=== PATIENT | male | born 1960 | race African-American/Black ===

== ENCOUNTER 2021-09-16 10:57 | Outpatient (REF) | payer MEDICAID, OTHER, SELFPAY ==
[2021-09-16 13:24] LABS: Binax Internal Control QC Valid; Binax Now Covid-19 Ag Negative (Negative)
== END 2021-09-16 10:58 | disposition home or self-care (01) ==
LOC: HO.LAB 10:57
PROVIDERS: Visit Provider Internal Medicine
DX: Z20.822 Contact with and (suspected) exposure to COVID-19 (principal)
CPT/HCPCS: 36415; C9803

== ENCOUNTER 2024-01-24 18:09 | Outpatient (REF) | payer MEDICAID, OTHER, SELFPAY | END 2024-01-24 18:10 | disposition home or self-care (01) | LOC: HO.HHCLNP 18:09 | PROVIDERS: Visit Provider Internal Medicine Geriatric Medicine | DX: N40.1 Benign prostatic hyperplasia with lower urinary tract symptoms (principal); R39.12 Poor urinary stream; R97.20 Elevated prostate specific antigen [PSA] | CPT/HCPCS: 81001 ==

== ENCOUNTER 2024-03-26 17:41 | Outpatient (REF) | payer MEDICAID, OTHER, SELFPAY ==
[2024-03-27 05:49] LABS: CT PCR NOT DETECTED (Not Detect.); NG PCR NOT DETECTED (Not Detect.)
== END 2024-03-26 17:42 | disposition home or self-care (01) ==
LOC: HO.HHCLNP 17:41
PROVIDERS: Visit Provider Nurse Practitioner Primary Care
DX: Z11.3 Encounter for screening for infections with a predominantly sexual mode of transmission (principal)
CPT/HCPCS: 87491; 87591

== ENCOUNTER 2024-12-08 13:33 | Outpatient (REF) | payer MEDICAID, OTHER, SELFPAY | END 2024-12-08 13:34 | disposition home or self-care (01) | LOC: HO.HHCLNP 13:33 | PROVIDERS: Visit Provider Family Medicine | DX: B00.2 Herpesviral gingivostomatitis and pharyngotonsillitis (principal) | CPT/HCPCS: 36415; 87255 ==

== ENCOUNTER 2025-01-26 13:29 | Outpatient (REF) | payer MEDICAID, OTHER, SELFPAY | END 2025-01-26 13:30 | disposition home or self-care (01) | LOC: HO.HHCLNP 13:29 | PROVIDERS: Visit Provider Registered Nurse | DX: B00.9 Herpesviral infection, unspecified (principal) | CPT/HCPCS: 36415; 87255 ==

== ENCOUNTER 2025-03-04 09:56 | Outpatient (REF) | payer MEDICAID, OTHER, SELFPAY ==
[2025-03-04 11:13] LABS: Appearance Urine Clear; Color Urine Yellow; Glucose Urine UA Negative (Negative); Leukocyte Esterase Urine Trace (Negative); Nitrite Urine Negative (Negative); PH 6.5 (5.0-9.0); Specific Gravity - Urine 1.025 (1.005-1.025); UMIC TRIGGER UACC YES; Urine Blood Negative (Negative); Urine Ketones Negative (Negative); Urine Protein Negative (Neg-Trace)
[2025-03-04 11:19] LABS: Bacteria Urine None Seen (None Seen); Hyaline Casts Urine 0-2 /LPF (0-2); RBC Urine 0-2 /HPF (0-2); Squamous Epithelial Cell Urine 0-2 /HPF (0-2); WBC Urine 0-5 /HPF (0-5)
[2025-03-04 11:46] LABS: Alanine Aminotransferase 29 U/L (0-40); Albumin Level 4.3 g/dL (3.5-5.0); Alkaline Phosphatase 77 U/L (39-117); Anion Gap 10 (12-20); Aspartate Amino Transferase 34 U/L (5-37); Bilirubin Total 1.4 mg/dL (0.0-1.0); Blood Urea Nitrogen 21 mg/dL (9-16); Carbon Dioxide 26 mmol/L (22-29); Chloride 107 mmol/L (96-108); Estimated Glomerular Filt Rate > 60; Glucose Random 99 mg/dL (60-115); Potassium 3.7 mmol/L (3.3-5.1); Sodium 139 mmol/L (135-145)
[2025-03-04 12:00] LABS: HIV AB/AG Nonreactive (Nonreactive); HIV Num 1 0.05 S/CO (0.00-0.99); ~HepC Num1 0.11 S/CO (0.00-0.79); ~Hepatitis C Antibody Nonreactive (Nonreactive)
[2025-03-04 12:03] LABS: HBS Num1 0.57 mIU/mL (0-7.99); HBc Num1 0.05 S/CO (0.00-0.79); HBsAGNum1 0.53 S/CO (0.00-0.99); HIV AB/AG Nonreactive (Nonreactive); HIV Num 1 0.04 S/CO (0.00-0.99); Hepatitis A Antibody IgM 0.14 Index (0-0.79); Hepatitis B Core Antibody Nonreactive (Nonreactive); Hepatitis B Surface Antigen Negative (Negative); ~HepC Num1 0.11 S/CO (0.00-0.79); ~Hepatitis A Antibody IgM Nonreactive (Nonreactive); ~Hepatitis B Surface Antibody NONREACTIVE (Nonreactive); ~Hepatitis C Antibody Nonreactive (Nonreactive)
[2025-03-04 12:04] LABS: Syphilis Screen Nonreactive (Nonreactive)
[2025-03-04 12:11] LABS: PSA,Total (Free>4and<10) 9.41 ng/mL (0.00-4.00)
[2025-03-04 13:03] LABS: CT PCR NOT DETECTED (Not Detect.); NG PCR NOT DETECTED (Not Detect.)
[2025-03-05 10:43] LABS: RPR Rapid Plasma Reagin NON-REACTIVE (NON-REACTIVE)
[2025-03-05 14:33] LABS: Free Prostate Spec Ag 1.7 ng/mL; Percent Free Prostate Spec Ag 22 % (calc) (>25); Prostate Specific Ag Total 7.7 ng/mL (< OR = 4.0)
== END 2025-03-04 09:57 | disposition home or self-care (01) ==
LOC: HO.HHCL 09:56
PROVIDERS: Family Medicine; General Practice; Nurse Practitioner Primary Care; PCP Internal Medicine; Visit Provider Internal Medicine
DX: N50.89 Other specified disorders of the male genital organs (principal); N41.0 Acute prostatitis; Z11.3 Encounter for screening for infections with a predominantly sexual mode of transmission; Z87.438 Personal history of other diseases of male genital organs
CPT/HCPCS: 36415; 80053; 81001; 84153; 84154; 86592; 86704; 86706; 86709; 86780; 86803; 87340; 87389; 87491; 87591

== ENCOUNTER 2025-08-01 09:12 | Outpatient (REF) | payer MEDICAID, OTHER, SELFPAY ==
--- OUTSIDE RECORDS SUMMARY | 2025-08-01 09:00 | XMS_ITS | Encounter Summary ---
Author Organization [employer] Address [address] [facility] [address] [place] [address] Care Team Providers Care B2B Sales Consultant Name Role Phone Constance Michael MD Unavailable [phone] Constance Michael MD Primary Care Provide r Encounter Details Date Type Department Care Team ([facility] st Contact Info) Description 08/01/2025 9:00 AM EST Office Visit [facility] [address] [place] [address] [phone] Nitesh Rader MD [address] [place] [address] Penile rash (Primary Dx) Social History Tobacco [...] daily for 7 days. Patient presents to [facility] due to itchy/painful redness on his penis [...] Penile rash Expected: 08/01/2025 (Approximate), Expires: 08/01/2026 Hepatitis C Antibody with Reflex to HCV, RNA, Quantitative, Real-Time PCR Lab Routine Penile rash Expected: 08/01/2025 (Approximate), Expires: 08/01/2026 HIV-1/2 Antigen and Antibodies, Fourth Generation, with Reflexes Lab Routine Penile rash Expected: 08/01/2025 (Approximate), Expires: 08/01/2026 Syphilis Screen Lab Routine Penile rash Expected: 08/01/2025 (Approximate), Expires: 08/01/2026 documented as of this encounter Visit Diagnoses Diagnosis Penile rash- Primary documented in this encounter Additional Health Concerns Assessment Noted Time PHQ-9 Depression Total Score: 0 07/04/20 11:58 AM EDT documented as of this encounter Care Teams B2B Sales Consultant Relationship Specialty Start Date End Date Constance Michael MD [address] [place] [address] PCP - General Internal Medicine 03/26/24 Constance Michael MD [address] [place] [address] Family Medicine 07/09/22 documented as of this encounter
--- OUTSIDE RECORDS SUMMARY | 2025-08-01 11:47 | XMS_ITS | Encounter Summary ---
Author Organization [employer] Address [address] [facility] [address] [place] [address] Care Team Providers Care Diamond Sawer Name Role Phone Constance Michael MD Primary Care Provide r Kyara Bowling DMD Primary Care Provide r Constance Michael MD Unavailable [phone] Constance Michael MD Primary Care Provide r Encounter Details Date Type Department Care Team (Latest Contact Info) Description 08/13/2021 Abstract [facility] CONVERSIONS Dental, Provider, DDS Social History Tobacco Use Types Packs/Day Years Used Date Smoking Tobacco: Never Assessed Sex and Gender Information Value Date Recorded Sex Assigned at Male 07/12/2022 10:35 AM EDT Legal Sex Male 10:35 AM EDT Gender Identity Male 07/12/2022 10:35 AM EDT Sexual Orientation Straight 07/12/2022 10 :35 AM EDT documented as of this encounter Plan of Treatment Not on file documented as of this encounter Visit Diagnoses Not on filedocumented in this encounter Care Teams Diamond Sawer Relationship Specialty Start Date End Date Constance Michael MD [address] [place] [address] PCP - General Family Medicine 12/01/18 07/08/22 Kyara Bowling DMD [address] [place] [phone] PCP - General Dentist 07/09/22 03/25/24 Constance Michael MD [address] [place] [address] PCP - General Internal Medicine 03/26/24 Constance Michael MD [address] [place] [address] Family Medicine 07/09/22 documented as of this encounter
--- OUTSIDE RECORDS SUMMARY | 2025-08-01 11:47 | XMS_ITS | Encounter Summary ---
Author Organization [facility] Address [address] [facility] [address] [place] [address] Care Team Providers Care Business Editor Name Role Phone Kyara Bowling DMD Primary Care Provide r Constance Michael MD Unavailable [phone] Constance Michael MD Primary Care Provide r Encounter Details Date Type Department Care Team (Late st Contact Info) Description 10/15/2022 Abstract [facility] [address] [place], [place] [phone] Jay Kamara DDS [address] [place], [place] [phone] Social History Tobacco Use Types Packs/Day Years Used Date Smoking Tobacco: Never Passive Smoke Exposure: Never Smokeless Tobacco: Never Alcohol Use Standard Drinks/Week Comments Never 0 (1 standard drink = 0.6 oz pur e alcohol) Sex and Gender Information Value Date Recorded Sex Assigned at Male 07/12/2022 10:35 AM EDT Legal Sex Male 10:35 AM EDT Gender Identity Male 07/12/2022 10:35 AM EDT Sexual Orientation Straight 07/12/2022 10 :35 AM EDT COVID-19 Exposure Response Date Recorded In the last 10 days, have yo u been in contact with someone who was confirmed or suspected to have Coronavirus/COVID-19? No / Unsure 10/12/2022 3:23 PM EST documented as of this encounter Plan of Treatment Not on file documented as of this encounter Visit Diagnoses Not on filedocumented in this encounter Care Teams Business Editor Relationship Specialty Start Date End Date Kyara Bowling DMD [address] [place] [phone] PCP - General Dentist 07/09/22 03/25/24 Constance Michael MD [address] [place] [address] PCP - General Internal Medicine 03/26/24 Constance Michael MD [address] [place] [address] Family Medicine 07/09/22 documented as of this encounter
--- OUTSIDE RECORDS SUMMARY | 2025-08-01 11:48 | XMS_ITS | Clinical Summary ---
Author Organization [employer] Address [address] [facility] 7[address] [place] [address] Care Team Providers Care Technical Planner Name Role Phone Constance Michael MD Unavailable [phone] Constance Michael MD Primary Care Provide r Allergies Active Allergy Reactions Criticality Noted Date Comments Citrullus Vulgaris Hives 10/29/2022 Solani Melongenae 08/04/2024 Medications Ketotifen Fumarate 0.035 % solution Administer 1 drop into affected eye(s) if needed in the morning and at bedtime (eye redness, itching). 10 mL 01/02/20 25 Active tamsulosin (Flomax) 0.4 MG 24 hr capsule Take 1 capsule (0.4 mg) by mouth Once per day. 30 capsule 1 01/02/20 25 026 Active famotidine (Pepcid) 20 MG tabletIndications: Gastroesophageal reflux disease, unspecified whether esophagitis present Take 1 tablet twice daily as needed for acid reflux 40 tablet 05/01/20 25 Active ibuprofen 800 MG tablet Take 1 tablet (800 mg) by mouth 3 times daily. 90 tablet 2 06/03/20 25 025 Active ketoconazole (NIZOral) 2 % cream APPLY CREAM TOPICALLY TO AFFECTED AREA TWICE DAILY FOR 2-4 WEEKS UNTIL RASH RESOLVES AND THEN FOR ANOTHER 1-2 WEEKS 05/18/20 25 Active prednisoLONE acetate (Pred-Forte) 1 % ophthalmic suspension INSTILL 1 DROP INTO EACH EYE TWICE DAILY FOR 7 DAYS,SHAKE WELL BEFORE USING 07/02/20 25 Active hydrocortisone 2.5 % cream APPLY CREAM TO AFFECTED AREA ON NOSE TWICE DAILY NEEDED FOR RASH UNTIL CLEAR THEN STOP 05/18/20 Active clotrimazole (Lotrimin) 1 % creamIndications:P enile rash Apply topically 2 times daily for 7 days. 30 g 9:50 AM EST 08/01/20 Active fluticasone (Flonase) 50 MCG/ACT nasal spray Administer 1 spray into each nostril Once per day. 16 g 05/11/20 24 Discontinu ed(Therapy completed) acetaminophen (Tylenol) 500 MG tablet Take 1 tablet (500 mg) by mouth every 6 (six) hours if needed for mild pain for up to 20 doses. 20 tablet 07/30/20 Discontinu ed(Therapy completed) ibuprofen 600 MG tablet Take 1 tablet (600 mg) by mouth every 6 (six) hours if needed for mild pain for up to 20 doses. 20 tablet 07/30/20 Discontinu ed(Therapy completed) hydrocortisone 1 % creamIndications:R sloan Apply 2-3 times/d as needed for itching 28 g 02/26/20 Discontinu ed(Therapy completed) prednisoLONE acetate (Pred-Forte) 1 % ophthalmic suspensionIndicati ons:Viral conjunctivitis Administer 1 drop into both eyes 2 times daily for 7 days. Shake before using. 5 mL 07/02/20 25 cephalexin (Keflex) 500 MG capsuleIndications :Cellulitis of groin Take 1 capsule (500 mg) by mouth 3 times daily for 7 days. 21 capsule 07/11/20 Active Problems Problem Noted Date Diagnosed Date Abfraction 04/03/2025 Genital lesion, male 03/04/2025 Assessment & Plan (03/04/2025 11:58 AM EDT): Unclear if it is an LGV, definitely it is not an ulcerated lesions. I will Rx doxycycline and other STI labs Advised to use condoms at all times and follow-up with PCP We discussed about PrEP but he was not interested in starting medication at this time. Skin rash 03/04/2025 Assessment & Plan (03/04/2025 11:59 AM EDT): On nose bridge, he has have HSV in the past but not typical lesions today. Rx Lotrisone cream twice daily and use zinc oxide paste on top of area to speed up healing (see picture in the chart) Since it is a recurrent lesion in the face and on that area, I will refer to dermatology for follow-up and biopsy if needed. 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 Reassurance and education to patient re using Valtrex as above within the firs 24-48h of onset of sxs (numbness or the area, redness, pain) for better results. Refills are provided today. Contact precautions, can use Vaseline ointment with a cotton swab on affected area to speed up healing. FU with PCP. 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 Encounters Date Type Department Care Team Description 08/01/2025 9:00 AM EST Office Visit [facility] [address] [place] [address] Nitesh Rader MD Penile rash (Primary Dx) 08/01/2025 Travel 07/11/2025 10:40 AM EDT Office Visit [facility] [address] [place] [address] Nitesh Rader MD Cellulitis of groin (Primary Dx) 07/11/2025 Travel 07/02/2025 2:30 PM EDT Office Visit [facility] [address] [place] [address] Luca, Lisa, OD Viral conjunctivitis (Primary Dx) 07/02/2025 Travel 06/03/2025 11:20 AM EDT Office Visit [facility] [address] [place] [address] Dulce Enamorado MD Abscess (Primary Dx) 06/03/2025 Travel 05/31/2025 Travel 05/01/2025 3:20 PM EDT [facility] [address] [address] Lesley Solis ANP Gastroesophageal reflux disease, unspecified whether esophagitis present (Primary Dx); Sore throat 05/01/2025 Travel from Last 3 Months Immunizations Immunization Administration Dates Next Due Influenza injectable quadrivalent preservative f ree 12/01/2018 Tdap 12/01/2018 Social History Tobacco Use Types Packs/Day Years Used Date Smoking Tobacco: Never Passive Smoke Exposure: Never Smokeless Tobacco: Never Tobacco Cessation:Counseling Given: Not Answered Alcohol Use Standard Drinks/Week Comments Never 0 [...] Orientation Straight 07/12/2022 10 :35 AM EDT Last Filed Vital Signs Vital Sign Reading [...] Mass Index 26.76 08/01/2025 8:43 AM EST Plan of Treatment Health Maintenance Due Date Last Done Comments CT Colonography 1961 Colonoscopy 1961 Colorectal Cancer Screening 1961 FIT DNA/Cologuard 1961 FIT 1961 FOBT 1961 Lipid Panel 1961 Sigmoidoscopy 1961 Disability Screening 1961 Alcohol/Substance Use Screening 1973 Pneumococcal Vaccine: 50+ Years (1 of 1 - PCV) 2011 Zoster Vaccines (1 of 2) 2011 COVID-19 Vaccine (3 - season) 2025 11/03/2021, 10/13/2021 Influenza Vaccine (#1) 2025 12/01/2018 Depression Screening 07/04/2025 07/04/2024, 07/04/20 24 SDOH Screening 07/04/2025 07/04/2024 Dental X-Ray: Full Mouth 09/30/2025 023, 12/09/2021, 12/09/2021, Additional history exists Dental Oral Exam 10/05/2025 04/03/2025, , 09/10/2016, Additional history exists Dental Prophylaxis 10/05/2025 04/03/2025, 0 09/29/2022, 09/10/2016, Additional history exists Dental X-Ray: Bitewings 04/04/2026 04/03/20 25, 10/26/2023, 09/19/2023, Additional history exists Tobacco Screening 08/01/2026 08/01/2025 DTaP/Tdap/Td Vaccines (2 - Td or Tdap) 12/01/2028 12/01/2018 RSV Patients and Patients Aged 60 years or older (1 - 1-dose 75+ series) 02/22/2036 HIV Screening Completed 03/04/2025, 02/11, 06/03/2020, Additional history exists Hepatitis C Screening Completed 03/04/2025 , 03/04/2025, 06/03/2020 HIB Vaccines Aged Out No longer eligi ble based on patient's age to complete this topic HPV Vaccines Aged Out No longer eligi ble based on patient's age to complete this topic Hepatitis A Vaccines Aged Out No long er eligible based on patient's age to complete this topic Hepatitis B Vaccines Aged Out No long er eligible based on patient's age to complete this topic IPV Vaccines Aged Out No longer eligi ble based on patient's age to complete this topic Meningococcal B Vaccine Aged Out No l onger eligible based on patient's age to complete this topic Meningococcal Vaccine Aged Out No emeli vince eligible based on patient's age to complete this topic RSV under 20 months Aged Out No longe r eligible based on patient's age to complete this topic Rotavirus Vaccines Aged Out No longer eligible based on patient's age to complete this topic Procedures Procedure Name Priority Date/Time Associated Diagnosis Comments AMB REFERRAL TO UROLOGY Urgent 07/17/2025 Elevated PSA, less than 10 ng/ml AMB REFERRAL TO DERMATOLOGY Routine 05/17/2025 Skin rash POCT COVID-19 AG ALICEA ID NOW Routine 05/01/2025 3:04 PM EDT Sore throat POC ALICEA ID NOW STREP A Routine 05/01/2025 2:51 PM EDT Sore throat PROPHYLAXIS - ADULT Routine 04/03/2025 3 :00 PM EDT BITEWINGS - 4 RADIOGRAPHIC IMAGES Routine 04/03/2025 3:00 PM EDT PERIODIC ORAL EVALUATION - ESTABLISHED PATIENT Routine 04/03/2025 3:00 PM EDT HEPATITIS PANEL, GENERAL Routine 03/04/2025 10:09 AM EDT Genital lesion, male HIV 1/2 ANTIGEN/ANTIBODY, FOURTH GENERATION W/RFL Routine 03/04/2025 10:09 AM EDT Genital lesion, male INTRAORAL - COMPLETE SERIES OF RADIOGRAPHIC IMAGES Routine 09/29/2022 10:00 AM EST from Last 3 Months or Most Recently Relevant to Health Maintenance Results * Referral to Urology (07/17/2025) us Jd Gunter MD OUTPATIENT REFERRAL ORDERABLES F inal Result * Referral to Dermatology (05/17/2025) us Teresa Lopez MD OUTPATIENT REFERRAL ORDE LAVELL Final Result * POCT Rapid Covid-19 ALICEA ID NOW (05/01/2025 3:04 PM EDT) Coronavirus Antigen PCR Negative Negative, Indeterminate, None Detected, Invalid, Specimen unsatisfactory for evaluation, Weakly Positive, 2+ QC Media Lot # [id number] Lot# Expiration Date Swab 05/01/2025 3:04 PM EDT Lesley Solis ANP POINT OF CARE TEST ENTER/EDIT OR DERABLES Final Result * POCT Rapid Strep A ALICEA ID NOW (05/01/2025 2:51 PM EDT) [facility] Rapid Strep A Screen Negative Negative, None Detected QC Media Lot # [id number] Lot# Expiration Date Swab 05/01/2025 2:51 PM EDT Lesley Solis ANP POINT OF CARE TEST ENTER/EDIT OR DERABLES Final Result * Hepatitis Panel, General (03/04/2025 10:09 AM EDT) [facility] Hepatitis A IgM Nonreactive Nonreactive [facility] Comment:IgM antibodies to BURNS V not detected; does not exclude earlyacute or recovered HAV infection. ~Hepatitis B Surface Antibody NONREACTIVE Nonreactive [facility] Comment:Nonreactive: < 8.00 mIU/mL Hepatitis B Core Antibody Nonreactive Nonreactive [facility] Hepatitis C Antibody Nonreactive Nonreactive [facility] Comment:Antibodies to HCV no t detected; does not exclude early acuteHCV infection. Hepatitis B Surface Ag Negative Negative [facility] Blood 03/04/2025 10:0 9 AM EDT 03/04/2025 11:12 AM EDT Teresa Lopez MD LAB BLOOD ORDERABLES Fin al Result [facility] [address] [place] [address] [phone] * HIV-1/2 Antigen and Antibodies, Fourth Generation, with Reflexes (03/04/2025 10:09 AM EDT) HIV AB/AG Nonreactive Nonreactive [facility] Comment:HIV-1 p24 Ag and/or HIV-1/HIV-2 Ab not detected.A test result that is nonreactive does not exclude thepossibility of exposure to or infection with HIV-1 and/orHIV-2. Nonreactive results in this assay for individualswith prior exposure to HIV-1 and/or HIV-2 may be due toantigen and antibody levels that are below the limit ofdetection of this assay.[employer] HIV Ag/Ab Combo assay result andsupplemental assay results should be interpreted inconjunction with the patient's clinical presentation,history and other laboratory results. If the results areinconsistent with clinical evidence, additional testing issuggested to confirm the result. Blood Venous blood specimen / Unknown 03/04/2025 10:09 AM EDT 03/04/2025 11:12 AM EDT Teresa Lopez MD LAB BLOOD ORDERABLES Fin al Result [facility] [address] [place] [address] [phone] from Last 3 Months or Most Recently Relevant to Health Maintenance Insurance [employer] LIMITED HS FULL D[facility]AL-[facility] MEDICAID LIMITED ADULT DENTAL - HSN FULL (MEDICAID) Care Teams Technical Planner Relationship Specialty Start Date End Date Constance Michale MD [address] [place] [address] PCP - General Internal Medicine 03/26/24 Constance Michael MD [address] [place] [address] Family Medicine 07/09/22
--- OUTSIDE RECORDS SUMMARY | 2025-08-01 11:48 | XMS_ITS | Encounter Summary ---
Author Organization [employer] [facility] Address [address] [facility] [address] [place] [address] Care Team Providers Care Technical Sales Advisor Name Role Phone Kyara Bowling DMD Primary Care Provide r Constance Michael MD Unavailable [phone] Constance Michael MD Primary Care Provide r Encounter Details Date Type Department Care Team ([facility] st Contact Info) Description 11/11/2022 Abstract [facility] [address] [place], [place] [phone] Jay Kamara DDS [address] [place], [place] [phone] Social History Tobacco Use Types Packs/Day Years [...] suspected to have Coronavirus/COVID-19? No / Unsure 11/11/2022 10:11 AM EST documented as of this encounter Plan of Treatment Not on file documented as of this encounter Visit Diagnoses Not on filedocumented in this encounter Care Teams Technical Sales Advisor Relationship Specialty Start Date End Date Kyara Bowling DMD [address] [place] [phone] PCP - General Dentist 07/09/22 03/25/24 Constance Michael MD [address] [place] [address] PCP - General Internal Medicine 03/26/24 Constance Michael MD [address] [place] [address] Family Medicine 07/09/22 documented as of this encounter
--- OUTSIDE RECORDS SUMMARY | 2025-08-01 11:48 | XMS_ITS | Encounter Summary ---
Author Organization [employer] Address [address] [facility] [address] [place] [address] Care Team Providers Care Block Trimmer Name Role Phone Constance Michael MD Unavailable [phone] Constance Michael MD Primary Care Provide r Encounter Details Date Type Department Care Team (Latest Contact Info) Description 08/01/2025 Travel Social History Tobacco Use Types Packs/Day Years [...] Diagnoses Not on filedocumented in this encounter Additional Health Concerns Assessment Noted Time PHQ-9 Depression Total Score: 0 07/04/20 24 11:58 AM EDT documented as of this encounter Care Teams Block Trimmer Relationship Specialty Start Date End Date Constance Michael MD [address] [place] [address] PCP - General Internal Medicine 03/26/24 Constance Michael MD [address] [place] [address] Family Medicine 07/09/22 documented as of this encounter
--- OUTSIDE RECORDS SUMMARY | 2025-08-01 11:48 | XMS_ITS | Encounter Summary ---
Author Organization [facility] Address [address] [facility] [address] [place] [address] Care Team Providers Care Electronic Lab Technician Name Role Phone Kyara Bowling DMD Primary Care Provide r Constance Michael MD Unavailable [phone] Constance Michael MD Primary Care Provide r Encounter Details Date Type Department Care Team ([facility] st Contact Info) Description 11/12/2022 Abstract [facility] [address] [place], [place] [phone] Jay Kamara DDS [address] [place], [place] [phone] Social History Tobacco Use Types Packs/Day Years [...] on filedocumented in this encounter Care Teams Electronic Lab Technician Relationship Specialty Start Date End Date Kyara Bowling DMD [address] [place] [id number] PCP - General Dentist 07/09/22 03/25/24 Constance Michael MD [address] [place] [address] PCP - General Internal Medicine 03/26/24 Constance Michael MD [address] [place] [address] Family Medicine 07/09/22 documented as of this encounter
--- OUTSIDE RECORDS SUMMARY | 2025-08-01 11:48 | XMS_ITS | Clinical Summary ---
Author Organization [facility] Address [address] [place] [address] Care Team Providers Care Engine Oiler Name Role Phone Constance Michael MD Primary Care Provider Allergies Active Allergy Reactions Criticality Noted Date Comments Watermelon Hives 10/29/2022 Medications famotidine (PEPCID) 20 mg tablet Take 40 mg by mouth daily. Active loratadine (CLARITIN) 10 mg tablet Take 10 mg by mouth as needed. Active hydrocortisone 2.5% cream Apply topically to the affected area 2 times a day as needed (Rash). Apply to nose daily as needed for rash until clear. Then stop 30 g 05/18/20 25 Active tamsulosin (FLOMAX) 0.4 mg capsule Take 1 capsule (0.4 mg total) by mouth at bed time. 90 capsule 3 07/17/20 25 026 Active sulfamethoxazo le-trimethopri m (BACTRIM DS) 800-160 mg tablet Take 1 tablet by mouth twice daily the day before, day of, and day after prostate biopsy. 6 tablet 07/17/20 25 Active tamsulosin (FLOMAX) 0.4 mg capsule Take 1 capsule (0.4 mg total) by mouth daily. 30 capsule 5 06/17/20 20 025 Discontinued ibuprofen (MOTRIN) 600 mg tablet Take 1 tablet (600 mg total) by mouth 3 times a day for 5 days. 15 tablet 07/17/20 25 025 Active Problems Problem Noted Date Diagnosed Date Adverse Food Reaction (Not Anaphylactic) 012 Allergic Rhinitis 08/15/2012 Encounters Date Type Department Care Team Description 07/18/2025 Results Follow-Up [facility] [address] [place] [address] Internist Medical Doctor Md: Joanie Gleason PA 07/17/2025 4:00 PM EST Office Visit [facility] [address] [place] [address] Internist Medical Doctor Md: Joanie Gleason PA Elevated PSA (Primary Dx); Dysuria; Chronic prostatitis 05/17/2025 2:15 PM EDT Office Visit [facility] [address] [place] [phone] Internist Medical Doctor Md: Brittney Nunn MD Inclusion cyst (Primary Dx); Tinea corporis 05/17/2025 Telephone [facility] [address] [place] [phone] Internist Medical Doctor Md: Brittney Nunn MD 05/17/2025 Telephone [facility] [address] [place] [phone] Internist Medical Doctor Md: Brittney Nunn MD from Last 3 Months Social History Tobacco Use Types Packs/Day Years Used Date Smoking Tobacco: Never Smokeless Tobacco: Never Comments:: Sex and Gender Information Value Date Recorded Sex Assigned at Male 04/05/2025 11:34 AM EDT Legal Sex Male 5:56 AM EDT Gender Identity Not on file Sexual Orientation Not on file Last Filed Vital Signs Vital Sign Reading Time Taken Comments Blood Pressure 115/68 07/17/2025 3:21 PM EST Pulse 75 07/17/2025 3:21 PM EST Temperature 36.7 C (98 F) 08/18/2012 9:34 AM EST Respiratory Rate - - Oxygen Saturation - - Inhaled Oxygen Concentration - - Weight 58.5 kg (129 lb) 08/18/2012 9:34 AM EST Height 160 cm (5' 3 ) 08/18/2012 9:34 AM EST Body Mass Index 22.85 08/18/2012 9:34 AM EST Plan of Treatment Upcoming Encounters Date Type Department Care Team (Late st Contact Info) Description 09/02/2025 6:45 PM EST Appointment [facility] [address] [place] [address] 10/17/2025 11:00 AM EST Office Visit [facility] [address] [facility] [place] [address] Internist Medical Doctor Md: Danyelle Lindsay, Grupo Whiteside MD [address] [place] [phone] Health Maintenance Due Date Last Done Comments Cologuard 1961 Colon Cancer Screening 1961 Colonoscopy 1961 FOBT / Fit Test 1961 Sigmoidoscopy 1961 Pneumococcal Vaccine: 50+ Years (1 of 1 - PCV) 2011 Zoster Vaccines (1 of 2) 2011 Alcohol/Substance Use Screening 09/12/2024 Depression Screening and Follow-Up 09/12/2024 Social Drivers of Health Annual Screening 09/12/2024 Influenza Vaccine (#1) 2025 12/01/2018 COVID-19 Vaccine ( season) 2025 11/03/2021, 10/13/2021 DTaP,Tdap,and Td Vaccines (2 - Td or Tdap) 12/01/2028 12/01/2018 RSV Vaccine (60+ years old and patients) (1 - 1-dose 75+ series) 02/22/2036 HIV Screening Completed 03/04/2025, 02/11, 03/04/2025, Additional history exists Hepatitis C Screening Completed 03/04/2025 Hepatitis B Vaccines Aged Out No long er eligible based on patient's age to complete this topic Procedures * Due to [place] state law, this organization might not be sharing negative HIV tests. Procedure Name Priority Date/Time Associated Diagnosis Comments TUCKER TOP, URN Routine 07/17/2025 5:06 PM EST Dysuria UA/CULTURE REFLEX Routine 07/17/2025 5:0 6 PM EST Dysuria URINALYSIS W/REFLEX TO MICROSCOPIC & CULTURE Routine 07/17/2025 5:06 PM EST Dysuria from Last 3 Months Results * Due to [place] state law, this organization might not be sharing negative HIV tests. * Tucker Top, Urine (07/17/2025 5:06 PM EST) Extra Tube Hold for add-ons. 07/17/2025 10:05 PM EST [facility] Comment:Auto resulted. Urine Urine specimen collection, clean catch / Unknown Non-Blood Collection / Unknown 07/17/2025 5:06 PM EST 07/17/2025 5:47 PM EST us Joanie KEITH LAB URINE ORDERABLES Final Result [facility] [address] [place] [address], * (ABNORMAL) Urinalysis W/Reflex to Microscopic & Culture (07/17/2025 5:06 PM EST) Color, Urine Light Yellow Colorless, Light Yellow, Yellow, Dark Yellow 07/17/2025 6:09 PM EST [facility] Clarity, Urine Clear Clear 07/17/2025 6:09 PM EST [facility] Specific [place], Urine 1.018 <1.030 07/17/2025 6:09 PM EST [facility] pH, Urine 7.0 4.6 - 8.0 07/17/2025 6:09 PM EST [facility] Protein, Urine Negative Negative 07/17/2025 6:09 PM EST [facility] Glucose, Urine Normal Normal 07/17/2025 6:09 PM EST [facility] Ketones, Urine Negative Negative 07/17/2025 6:09 PM EST [facility] Bilirubin, Urine Negative Negative 07/17/2025 6:09 PM EST [facility] Blood, Urine Negative Negative 07/17/2025 6:09 PM EST [facility] Nitrite, Urine Negative Negative 07/17/2025 6:09 PM EST [facility] Urobilinogen, Urine Normal Normal 07/17/2025 6:09 PM EST [facility] Leukocyte Esterase, Urine Negative Negative 07/17/2025 6:09 PM EST [facility] WBC, Urine 1 0 - 2 /HPF 07/17/2025 6:09 PM EST [facility] RBC, Urine 3(H) 0 - 2 /HPF 07/17/2025 6:09 PM EST [facility] Hyaline Casts, Urine 0 0 - 2 /LPF 07/17/2025 6:09 PM EST [facility] Bacteria, Urine None Seen None /HPF /HPF 07/17/2025 6:09 PM EST [facility] Urine Urine specimen collection, clean catch / Unknown Non-Blood Collection / Unknown 07/17/2025 5:06 PM EST 07/17/2025 5:47 PM EST us Joanie KEITH LAB URINE ORDERABLES Final Result [facility] [address] [place] [phone], from Last 3 Months Insurance [place] [employer] Care Teams Engine Oiler Relationship Specialty Start Date End Date Constance Michael MD [address] [place] [id number] PCP - General Internal Medicine 08/13/24
--- OUTSIDE RECORDS SUMMARY | 2025-08-01 11:48 | XMS_ITS | Clinical Summary ---
Author Organization [facility] Address [address] [place] [address] Phone Care Team Providers Care Vegetable Sorter Name Role Phone Unknown, Unknown Primary Care Provider Unavai lable Allergies No known active allergies Medications cephalexin (KEFLEX) 250 MG capsule Take 1 capsule (250 mg total) by mouth 4 (four) times a day. 28 capsule 11/12/2017 Active Social History Tobacco Use Types Packs/Day Years Used Date Smoking Tobacco: Never Smokeless Tobacco: Never Alcohol Use Standard Drinks/Week Comments No 0 (1 standard drink = 0.6 oz pur e alcohol) Sex and Gender Information Value Date Recorded Sex Assigned at Male 11/12/2017 1:03 PM EST Legal Sex Male 9:47 PM EDT Gender Identity Male 11/12/2017 1:03 PM EST Sexual Orientation Not on file Last Filed Vital Signs Vital Sign Reading Time Taken Comments Blood Pressure 122/68 11/12/2017 1:00 PM EST Pulse 65 11/12/2017 1:00 PM EST Temperature 36.8 C (98.3 F) 11/12/2017 1:00 PM EST Respiratory Rate 18 11/12/2017 1:00 PM EST Oxygen Saturation 96% 11/12/2017 1:00 PM EST Inhaled Oxygen Concentration - - Weight 61.2 kg (135 lb) 11/12/2017 1:00 PM EST Height 162.6 cm (5' 4 ) 11/12/2017 1:00 PM EST Body Mass Index 23.17 11/12/2017 1:00 PM EST Plan of Treatment Not on file Medical Devices Not on file Insurance HEALTH SAFETY NET PARTIAL HEALTH SAFETY NET PARTIAL HEALTH SAFETY NET PARTIAL Member Subscriber Plan / Payer (Ef fective 2017-Present) Name:Didier, Tristen Relation to Subscriber:Self Name:TRISTEN GRAY Payer ID:Not on file Group ID:Not on file Type:Medicaid Address: [place] [id number] HEALTH SAFETY NET PARTIAL HEALTH SAFETY NET PARTIAL HEALTH SAFETY NET PARTIAL HEALTH SAFETY NET PARTIAL HEALTH SAFETY NET PARTIAL NET PARTIAL Care Teams Vegetable Sorter Relationship Specialty Start Date End Date Unknown, Unknown, PCP - General 11/12/17 Additional Source Comments The information contained in this document represents components of the legal health record. It is not the complete legal health record.[facility]
--- OUTSIDE RECORDS SUMMARY | 2025-08-01 11:49 | XMS_ITS | Encounter Summary ---
Author Organization [employer] [facility] Address [address] 7t [place] [address] Care Team Providers Care Gas Distribution Plant Operator Name Role Phone Constance Michael MD Primary Care Provide r Kyara Bowling DMD Primary Care Provide r Constance Michael MD Unavailable [phone] Constance Michael MD Primary Care Provide r Encounter Details Date Type Department Care Team (Latest Contact Info) Description 05/23/2019 Abstract [facility] CONVERSIONS Dental, Provider, DDS Social History Tobacco [...] on filedocumented in this encounter Care Teams Gas Distribution Plant Operator Relationship Specialty Start Date End Date Constance Michael MD [address] [place] [address] PCP - General Family Medicine 12/01/18 07/08/22 Kyara Bowling DMD [address] [place] [address] PCP - General Dentist 07/09/22 03/25/24 Constance Michael MD [address] [place] [address] PCP - General Internal Medicine 03/26/24 Constance Michael MD [address] [place] [address] Family Medicine 07/09/22 documented as of this encounter
--- OUTSIDE RECORDS SUMMARY | 2025-08-01 11:49 | XMS_ITS | Encounter Summary ---
Author Organization [facility] Address [address] 7t [place] [address] Care Team Providers Care Electronic Court Recorder Name Role Phone Kyara Bowling DMD Primary Care Provide r Constance Michael MD Unavailable [phone] Constance Michael MD Primary Care Provide r Encounter Details Date Type Department Care Team (Late st Contact Info) Description 12/31/2022 Abstract [facility] ADULT DENTAL [address] [place], [place] [phone] Danielle, Nicolle [address] [place] [address] Social History Tobacco Use Types Packs/Day Years [...] suspected to have Coronavirus/COVID-19? No / Unsure 12/16/2022 11:14 AM EDT documented as of this encounter Plan of Treatment Not on file documented as of this encounter Visit Diagnoses Not on filedocumented in this encounter Care Teams Electronic Court Recorder Relationship Specialty Start Date End Date Kyara Bowling DMD [address] [place] [address] PCP - General Dentist 07/09/22 03/25/24 Constance Michael MD [address] [place] [address] PCP - General Internal Medicine 03/26/24 Constance Michael MD [address] [place] [address] Family Medicine 07/09/22 documented as of this encounter
--- OUTSIDE RECORDS SUMMARY | 2025-08-01 11:49 | XMS_ITS | Encounter Summary ---
Author Organization [employer] [facility] Address [address] 7t [place] [address] Care Team Providers Care Truck Jumper Name Role Phone Kyara Bowling DMD Primary Care Provide r Constance Michael MD Unavailable [phone] Constance Michael MD Primary Care Provide r Encounter Details Date Type Department Care Team ([facility] st Contact Info) Description 11/12/2022 Abstract [facility] ADULT DENTAL [address] [place], [place] [phone] Jay Kamara DDS [address] [place], [place] [phone] Social History Tobacco Use Types Packs/Day Years [...] on filedocumented in this encounter Care Teams Truck Jumper Relationship Specialty Start Date End Date Kyara Bowling DMD [address] [place] [address] PCP - General Dentist 07/09/22 03/25/24 Constance Michael MD [address] [place] [address] PCP - General Internal Medicine 03/26/24 Constance Michael MD [address] [place] [address] Family Medicine 07/09/22 documented as of this encounter
--- OUTSIDE RECORDS SUMMARY | 2025-08-01 11:49 | XMS_ITS | Encounter Summary ---
Author Organization [employer] Address [address] 7t [place] [address] Care Team Providers Care Marketing Account Executive Name Role Phone Kyara Bowling DMD Primary Care Provide r Constance Michael MD Unavailable [phone] Constance Michael MD Primary Care Provide r Reason for Visit * Reason Onset Date Comments Nurse Triage 05/26/2023 Encounter Details Date Type Department Care Team (Late st Contact Info) Description 05/26/2023 Telephone [facility] MEDICINE [address] [place] [address] Kyara Bowling DMD [address] [place] [address] Nurse Triage Social History Tobacco Use Types Packs/Day Years [...] AM EDT documented as of this encounter Miscellaneous Notes * Telephone Encounter - Ewa Blake RN - 05/26/2023 5:04 PM EDT Triage call with [email or web address] Examiner [place] [id number] Pt reports localized rash for last 3 days, top of lip to under nose. Pt reports itchy, red , painful with little blisters draining water . Pt is advised to come to [facility] in the morning for provider tosee. Pt agrees with disposition , will come to [facility] in AM hours given opens at 830am and closes 400pm. Protocol Used: Rash or Redness - Localized (Adult) Protocol-Based Disposition: See in Office or Video Visit Today Override (Final) Disposition: See in Office or Video Visit Today or Tomorrow Override Reason: Other Video visit not offered Positive Triage Question: * Localized rash is very painful (no fever) * All higher-acuity triage questions were negative Care Advice Discussed: * Reassurance and Education - Mild Localized Rash * Avoid the Cause * Wash the Area * Cold Pack for Mild Itching or Mild Pain * Don't Scratch * Reasons To Call Back - Rash spreads or becomes worse - Rash lasts longer than 1 week - You become worse * Telephone Encounter - Jeanie Ledesma - 05/26/2023 4:41 PM EDT Symptom: Rash or Redness - Widespread Outcome: Schedule a same-day appointment or talk to a nurse or provider today Reason: Caller denied all higher acuity questions The caller accepted this outcome Patient speaks romansh documented in this encounter Plan of Treatment Not on file documented as of this encounter Visit Diagnoses Not on filedocumented in this encounter Care Teams Marketing Account Executive Relationship Specialty Start Date End Date Kyara Bowling DMD [address] [place] [address] PCP - General Dentist 07/09/22 03/25/24 Constance Michael MD [address] [place] [address] PCP - General Internal Medicine 03/26/24 Constance Michael MD [address] [place] [address] Family Medicine 07/09/22 documented as of this encounter
--- OUTSIDE RECORDS SUMMARY | 2025-08-01 11:49 | XMS_ITS | Encounter Summary ---
Author Organization [facility] Address [address] [place] [address] Care Team Providers Care Towboat Pilot Name Role Phone Constance Michael MD Primary Care Provider Reason for Referral * Consultation (Routine) - Authorized Specialty Diagnoses / Procedures Referred By Noa stokes Referred To Contact Dermatology Diagnoses Skin rash Teresa Lopez [address] [place] [address] Phone: tel: fax: Brittney Luna MD [address] [place] [address] Phone: tel: fax: Referral ID Status Reason Start Date Expiration Date Visits Requested Visits Authorized [id number] Authorized Specialty Services Required 03/21/2025 04/21/2026 6 6 Encounter Details Date Type Department Care Team (Latest Contact Info) Description 03/21/2025 Transcribe Orders [facility] Physician Referral Services [address] [place] [address] Teresa Lopez [address] [place] [address] Skin rash (Primary Dx) Social History Tobacco Use Types Packs/Day Years Used Date Smoking Tobacco: Never Smokeless Tobacco: Never Comments:: Sex and Gender Information Value Date Recorded Sex Assigned at Male 04/05/2025 11:34 AM EDT Legal Sex Male 5:56 AM EDT Gender Identity Not on file Sexual Orientation Not on file documented as of this encounter Plan of Treatment Upcoming Encounters Date Type Department Care Team (Late st Contact Info) Description 09/02/2025 6:45 PM EST Appointment [facility] [address] [address] 10/17/2025 11:00 AM EST Office Visit [facility] [address] [place] [address] Die Sizer: Grupo Ann MD [address] [place] [address] Scheduled Referrals Name Type Priority Associated Diagnoses Order Schedule Ambulatory referral to Dermatology Outpatient Referral Routine Skin rash Expected: 03/21/2025, Expires: 04/21/2026 documented as of this encounter Visit Diagnoses Diagnosis Skin rash- Primary Rash and other nonspecific skin eruption documented in this encounter Care Teams Towboat Pilot Relationship Specialty Start Date End Date Constance Michael MD [address] [place] [address] PCP - General Internal Medicine 08/13/24 documented as of this encounter
--- OUTSIDE RECORDS SUMMARY | 2025-08-01 11:49 | XMS_ITS | Encounter Summary ---
Author Organization [employer] Address [address] 7t [place] [address] Care Team Providers Care Outbound Call Center Representative Name Role Phone Kyara Bowling DMD Primary Care Provide r Constance Michael MD Unavailable [phone] Constance Michael MD Primary Care Provide r Encounter Details Date Type Department Care Team (Late st Contact Info) Description 01/14/2023 Abstract [facility] ADULT DENTAL [address] [place], [place] [phone] Peyton Arango, DDS [address] [place], [place] [phone] Social History Tobacco Use Types Packs/Day Years [...] on filedocumented in this encounter Care Teams Outbound Call Center Representative Relationship Specialty Start Date End Date Kyara Bowling DMD [address] [place] [address] PCP - General Dentist 07/09/22 03/25/24 Constance Michael MD [address] [place] [address] PCP - General Internal Medicine 03/26/24 Constance Michael MD [address] [place] [address] Family Medicine 07/09/22 documented as of this encounter
[2025-08-01 12:20] LABS: Syphilis Screen Nonreactive (Nonreactive)
[2025-08-01 12:21] LABS: PSA,Total (Free>4and<10) 9.58 ng/mL (0.00-4.00)
[2025-08-01 12:27] LABS: HIV Num 1 0.06 S/CO (0.00-0.99); ~HepC Num1 0.09 S/CO (0.00-0.79); ~Hepatitis C Antibody Nonreactive (Nonreactive)
[2025-08-02 12:14] LABS: Free Prostate Spec Ag 1.3 ng/mL; Percent Free Prostate Spec Ag 15 % (calc) (>25)
== END 2025-08-01 09:13 | disposition home or self-care (01) ==
LOC: HO.HHCL 09:12
PROVIDERS: Internal Medicine; PCP Internal Medicine; Visit Provider Family Medicine
DX: Z11.4 Encounter for screening for human immunodeficiency virus [HIV] (principal); Z11.59 Encounter for screening for other viral diseases; R97.20 Elevated prostate specific antigen [PSA]; R21 Rash and other nonspecific skin eruption
CPT/HCPCS: 36415; 84153; 84154; 86780; 86803; 87255; 87389

== ENCOUNTER 2025-08-02 14:14 | Outpatient (REF) | payer MEDICAID, OTHER, SELFPAY ==
--- OUTSIDE RECORDS SUMMARY | 2025-08-01 09:00 | XMS_ITS | Encounter Summary ---
Author Organization [employer] Address [address] [facility] [address] [place] [address] Care Team Providers Care Direct Chill Caster Name Role Phone Constance Michael MD Unavailable [phone] Constance Michael MD Primary Care Provide r Encounter Details Date Type Department Care Team ([facility] st Contact Info) Description 08/01/2025 9:00 AM EST Office Visit [facility] [address] [place] [address] [phone] Nitesh Rader MD [address] [place] [address] Penile rash (Primary Dx) Social History Tobacco Use Types Packs/Day Years Used Date Smoking Tobacco: Never Passive Smoke Exposure: Never Smokeless Tobacco: Never Alcohol Use Standard Drinks/Week Comments Never 0 (1 standard drink = 0.6 oz pur e alcohol) Depression Answer Date Recorded Patient Health Questionnaire-9 Score 0 07/04/2024 Patient Health Questionnaire-9 Score 0 07/04/2024 Last PHQ-9: Questionnaire Data Not on file 1 Housing Stability Answer Date Recorded What is your housing situation today? I have rajiv bradley 07/04/[address] you li ve. Do you have problems with any of the following? None of the above 07/04/2024 Food Insecurity Answer Date Recorded Within the past 12 months, y ou worried that your food would run out before you got money to buy more: Never True 07/04/2024 Within the past 12 months,th e food you bought just didn't last and you didn't have enough money to get more: Never True Transportation Answer Date Recorded In the past 12 months, has l ack of transportation kept you from medical appts, meetings, work or from getting things needed for daily living? No 07/04/2024 Utilities Answer Date Recorded In the past 12 months, has t he electric, gas, oil or water company threatened to shut off services in your home? No 07/04/2024 Depression Answer Date Recorded Patient Health Questionnaire-2 Score 0 07/04/2024 Internet Access Answer Date Recorded Internet Access Q1 Yes 07/04/2024 Internet Access Q2 Not on file 07/04/2024 Sex and Gender Information Value Date Recorded Sex Assigned at Male 07/12/2022 10:35 AM EDT Legal Sex Male 10:35 AM EDT Gender Identity Male 07/12/2022 10:35 AM EDT Sexual Orientation Straight 07/12/2022 10 :35 AM EDT documented as of this encounter Last Filed Vital Signs Vital Sign Reading Time Taken Comments Blood Pressure 100/60 08/01/2025 8:43 AM EST Pulse 62 08/01/2025 8:43 AM EST Temperature 36.6 C (97.9 F) 08/01/2025 8:43 AM EST Respiratory Rate 20 08/01/2025 8:43 AM EST Oxygen Saturation 100% 08/01/2025 8:43 AM EST Inhaled Oxygen Concentration - - Weight 62.1 kg (137 lb) 08/01/2025 8:43 AM EST Height 152.4 cm (5') 08/01/2025 8:43 AM EST Body Mass Index 26.76 08/01/2025 8:43 AM EST documented in this encounter Progress Notes * Nitesh Rader MD - 08/01/2025 9:00 AM EST Subjective History was provided by the patient. Tristen Root is a 65 y.o. male who presents for evaluation of redness along the gallardo of his penis for 1 week. No purulent discharge or bleeding, but has a scant clear discharge. He is uncircumcised. The area is described as itchy and painful. Has 2 sexual partners. Denies urethral discharge or dysuria or hematuria. Denies F/C. Recently treated with Keflex for skin infection 2 weeks ago. He was also recently evaluated by Urology 2 weeks ago for BPH with LUTS, chronic prostatitis, and elevated PSA (7.7 with 22% Free PSA in 02/2025). Recommended to resume Tamsulosin and start Ibuprofen.Prostate MRI and biopsy scheduled for next month (09/02/2025). Objective Vitals: 08/01/25 0843 BP: 100/60 BP Location: Right arm Patient Position: Sitting BP Cuff Size: Adult Pulse: 62 Resp: 20 Temp: 97.9 ??F (36.6 ??C) TempSrc: Oral SpO2: 100% Weight: 137 lb (62.1 kg) Height: 5' (1.524 m) Physical Exam Constitutional: General: He is not in acute distress. Appearance: Normal appearance. He is not ill-appearing, toxic-appearing or diaphoretic. HENT: Right Ear: External ear normal. Left Ear: External ear normal. Mouth/Throat: Pharynx: Oropharynx is clear. Eyes: Extraocular Movements: Extraocular movements intact. Conjunctiva/sclera: Conjunctivae normal. Pulmonary: Effort: Pulmonary effort is normal. Musculoskeletal: Cervical back: Neck supple. Skin: General: Skin is warm and dry. Comments: Uncircumcised penis; no inguinal LAD; erythema without discrete papules, vesicles, or pustules at glans or gallardo of penis; a scant clear discharge noted Neurological: General: No focal deficit present. Mental Status: He is alert and oriented to person, place, and time. Psychiatric: Mood and Affect: Mood normal. Behavior: Behavior normal. Diagnoses and all orders for this visit: Penile rash (Primary) - Herpes Simplex Virus Culture with Reflex Typing; Future - Chlamydia/N. Gonorrhoeae RNA, TMA, Urogenitial; Future - Hepatitis C Antibody with Reflex to HCV, RNA, Quantitative, Real-Time PCR; Future - HIV-1/2 Antigen and Antibodies, Fourth Generation, with Reflexes; Future - Syphilis Screen; Future - clotrimazole (Lotrimin) 1 % cream; Apply topically 2 times daily for 7 days. Patient presents to [facility] due to itchy/painful redness on his penis (the gallardo area) Has scant clear discharge, but no discrete vesicles, pustules, or papules The area swabbed for HSV Culture Recent antibiotic use Suspect fungal infection Will treat with Clotrimazole 1% cream Safer sex recommended Will also check for HIV, Hep C, RPR, and GC/CT Potential adverse effects of the medication reviewed Advised to contact the clinic if persistent or worsening symptoms Indications for UC/ER use reviewed documented in this encounter Plan of Treatment Scheduled Orders Name Type Priority Associated Diagnoses Orde r Schedule Herpes Simplex Virus Culture with Reflex Typing Microbiology Routine Penile rash Expected: 08/01/2025, Expires: 08/01/2026 Chlamydia/N. Gonorrhoeae RNA, TMA, Urogenitial Microbiology Routine Penile rash Expected: 08/01/2025 (Approximate), Expires: 08/01/2026 documented as of this encounter Procedures Procedure Name Priority Date/Time Associated Diagnosis Comments SYPHILIS SCREEN Routine 08/01/2025 9:21 AM EST Penile rash HEPATITIS C AB W/REFL TO HCV RNA, QN, PCR Routine 08/01/2025 9:21 AM EST Penile rash HIV 1/2 ANTIGEN/ANTIBODY, FOURTH GENERATION W/RFL Routine 08/01/2025 9:21 AM EST Penile rash documented in this encounter Results * Syphilis Screen (08/01/2025 9:21 AM EST) Syphilis Screen Nonreactive Nonreactive [facility] Blood 08/01/2025 9:21 AM EST 08/01/2025 11:10 AM EST us Nitesh Rader MD LAB BLOOD ORDERABLES Final Resul t [facility] [address] [place] [phone] [phone] * HIV-1/2 Antigen and Antibodies, Fourth Generation, with Reflexes (08/01/2025 9:21 AM EST) HIV AB/AG Nonreactive Nonreactive [facility] Comment:HIV-1 p24 Ag and/or HIV-1/HIV-2 Ab not detected.A test result that is nonreactive does not exclude thepossibility of exposure to or infection with HIV-1 and/orHIV-2. Nonreactive results in this assay for individualswith prior exposure to HIV-1 and/or HIV-2 may be due toantigen and antibody levels that are below the limit ofdetection of this assay.The Learn with [employer] HIV Ag/Ab Combo assay result andsupplemental assay results should be interpreted inconjunction with the patient's clinical presentation,history and other laboratory results. If the results areinconsistent with clinical evidence, additional testing issuggested to confirm the result. Blood Venous blood specimen / Unknown 08/01/2025 9:21 AM EST 08/01/2025 11:10 AM EST Nitesh Rader MD LAB BLOOD ORDERABLES Final Resul t Performing Organization Address City/[facility]/ZIP Co de Phone Number [facility] [address] [place] [phone] * Hepatitis C Antibody with Reflex to HCV, RNA, Quantitative, Real-Time PCR (08/01/2025 9:21 AM EST) Hepatitis C Antibody Nonreactive Nonreactive [facility] Comment:Antibodies to HCV no t detected; does not exclude early acuteHCV infection. Blood Venous blood specimen / Unknown 08/01/2025 9:21 AM EST 08/01/2025 11:10 AM EST us Nitesh Rader MD LAB BLOOD ORDERABLES Final Resul t Performing Organization Address [facility] Co de Phone Number [facility] [address] [place] [phone] documented in this encounter Visit Diagnoses Diagnosis Penile rash- Primary documented in this encounter Additional Health Concerns Assessment Noted Time PHQ-9 Depression Total Score: 0 07/04/20 24 11:58 AM EDT documented as of this encounter Care Teams Direct Chill Caster Relationship Specialty Start Date End Date Constance Michael MD [address] [place] [address] PCP - General Internal Medicine 03/26/24 Constance Michael MD [address] [place] [address] Family Medicine 07/09/22 documented as of this encounter
--- OUTSIDE RECORDS SUMMARY | 2025-08-02 14:34 | XMS_ITS | Clinical Summary ---
Author Organization [facility] Address [address] [place] [address] Care Team Providers Care Mergers And Acquisitions Banker Name Role Phone Constance Michael MD Primary [...] Care Team Description 07/18/2025 Results Follow-Up [facility] [address] [place] [phone] Spring Machine Operator: Joanie Gleason PA 07/17/2025 4:00 PM EST Office Visit [facility] [address] [place] [address] Spring Machine Operator: Joanie Gleason PA Elevated PSA (Primary Dx); Dysuria; Chronic prostatitis 05/17/2025 2:15 PM EDT Office Visit [facility] [address] [place] [phone] Spring Machine Operator: Brittney Nunn MD Inclusion cyst (Primary Dx); Tinea corporis 05/17/2025 Telephone [facility] [address] [place] [phone] Spring Machine Operator: Brittney Nunn MD 05/17/2025 Telephone [facility] [address] [place] [phone] Spring Machine Operator: Brittney Nunn MD from Last 3 Months [...] 09/02/2025 6:45 PM EST Appointment [facility] [address] [place] [address] 10/17/2025 11:00 AM EST Office Visit [facility] [address] [facility] [place] [address] Spring Machine Operator: Danyelle Lindsay, Grupo Whiteside MD [address] [place] [phone] Health Maintenance Due Date Last Done Comments [...] complete this topic Procedures * Due to [place] state law, this organization might not be sharing negative HIV tests. Procedure Name Priority Date/Time Associated Diagnosis Comments TUCKER TOP, URN Routine 07/17/2025 5:06 PM EST Dysuria UA/CULTURE REFLEX Routine 07/17/2025 5:0 6 PM EST Dysuria URINALYSIS W/REFLEX TO MICROSCOPIC & CULTURE Routine 07/17/2025 5:06 PM EST Dysuria from Last 3 Months Results * Due to [place] state law, this organization might not be sharing negative HIV tests. * Tucker Top, Urine (07/17/2025 5:06 PM EST) Extra Tube Hold for add-ons. 07/17/2025 10:05 PM EST [facility] Comment:Auto resulted. Urine Urine specimen collection, clean catch / Unknown Non-Blood Collection / Unknown 07/17/2025 5:06 PM EST 07/17/2025 5:47 PM EST us Joanie [facility] URINE ORDERABLES Final Result [facility] [address] [place] [address], * (ABNORMAL) Urinalysis W/Reflex to Microscopic & Culture (07/17/2025 5:06 PM EST) Color, Urine Light Yellow Colorless, Light Yellow, Yellow, Dark Yellow 07/17/2025 6:09 PM EST [facility] Clarity, Urine Clear Clear 07/17/2025 6:09 PM EST [facility] Specific [place], Urine 1.018 <1.030 07/17/2025 6:09 PM EST [facility] pH, Urine 7.0 4.6 - 8.0 07/17/2025 6:09 PM EST [facility] Protein, Urine Negative Negative 07/17/2025 6:09 PM EST [facility] Glucose, Urine Normal Normal 07/17/2025 6:09 PM EST [facility] Ketones, Urine Negative Negative 07/17/2025 6:09 PM EST [facility] Bilirubin, Urine Negative Negative 07/17/2025 6:09 PM EST [facility] Blood, Urine Negative Negative 07/17/2025 6:09 PM EST [facility] Nitrite, Urine Negative Negative 07/17/2025 6:09 PM EST [facility] Urobilinogen, Urine Normal Normal 07/17/2025 6:09 PM EST [facility] Leukocyte Esterase, Urine Negative Negative 07/17/2025 6:09 PM EST [facility] WBC, Urine 1 0 - 2 /HPF 07/17/2025 6:09 PM EST [facility] RBC, Urine 3(H) 0 - 2 /HPF 07/17/2025 6:09 PM EST [facility] Hyaline Casts, Urine 0 0 - 2 /LPF 07/17/2025 6:09 PM EST [facility] Bacteria, Urine None Seen None /HPF /HPF 07/17/2025 6:09 PM EST [facility] Urine Urine specimen collection, clean catch / Unknown Non-Blood Collection / Unknown 07/17/2025 5:06 PM EST 07/17/2025 5:47 PM EST us Joanie [facility] URINE ORDERABLES Final Result [facility] [address] [place] [address], from Last 3 Months Insurance [place] HS[place]/FREE CARE Care Teams Mergers And Acquisitions Banker Relationship Specialty Start Date End Date Constance Michael MD [address] [place] [address] PCP - General Internal Medicine 08/13/24
--- OUTSIDE RECORDS SUMMARY | 2025-08-02 14:34 | XMS_ITS | Encounter Summary ---
Author Organization [employer] Address [address] 7t [place] [address] Care Team Providers Care Printed Circuit Boards Inspector Name Role Phone Constance Michael MD Primary Care Provide r Kyara Bowling DMD Primary Care Provide r Constance Michael MD Unavailable [phone] Constance Michael MD Primary Care Provide r Encounter Details Date Type Department Care Team (Latest Contact Info) Description 08/13/2021 Abstract [facility] CONVERSIONS Dental, Provider, DDS Social History [...] on filedocumented in this encounter Care Teams Printed Circuit Boards Inspector Relationship Specialty Start Date End Date Constance Michael MD [address] [place] [address] PCP - General Family Medicine 12/01/18 07/08/22 Kyara Bowling DMD [address] [place] [address] PCP - General Dentist 07/09/22 03/25/24 Constance Michael MD [address] [place] [address] PCP - General Internal Medicine 03/26/24 Constance Michael MD [address] [place] [address] Family Medicine 07/09/22 documented as of this encounter
--- OUTSIDE RECORDS SUMMARY | 2025-08-02 14:34 | XMS_ITS | Clinical Summary ---
Author Organization [facility] Address [address] [place] [address] Phone Care Team Providers Care Senior Software Engineer Analytics Name Role Phone Unknown, Unknown Primary Care [...] file Group ID:Not on file Type:Medicaid Address: [place] [id number] HEALTH SAFETY NET PARTIAL HEALTH SAFETY NET PARTIAL HEALTH SAFETY NET PARTIAL HEALTH SAFETY NET PARTIAL HEALTH SAFETY NET PARTIAL NET PARTIAL Care Teams Senior Software Engineer Analytics Relationship Specialty Start Date End Date Unknown, Unknown, PCP - General 11/12/17 Additional Source Comments The information contained in this document represents components of the legal health record. It is not the complete legal health record.[facility]
--- OUTSIDE RECORDS SUMMARY | 2025-08-02 14:34 | XMS_ITS | Encounter Summary ---
Author Organization [employer] [facility] Address [address] 7t [place] [address] Care Team Providers Care Interventional Cardiologist Name Role Phone Kyara Bowling DMD Primary Care Provide r Constance Michael MD Unavailable [phone] Constance Michael MD Primary Care Provide r Encounter Details Date Type Department Care Team ([facility] st Contact Info) Description 11/12/2022 Abstract [facility] ADULT DENTAL [address] [place], [place] [phone] Jay Kamara DDS [address] [place], [place] [phone] Social History Tobacco Use Types Packs/Day Years [...] on filedocumented in this encounter Care Teams Interventional Cardiologist Relationship Specialty Start Date End Date Kyara Bowling DMD [address] [place] [phone] PCP - General Dentist 07/09/22 03/25/24 Constance Michael MD [address] [place] [address] PCP - General Internal Medicine 03/26/24 Constance Michael MD [address] [place] [address] Family Medicine 07/09/22 documented as of this encounter
--- OUTSIDE RECORDS SUMMARY | 2025-08-02 14:34 | XMS_ITS | Encounter Summary ---
Author Organization [employer] Address [address] [facility] 7t [place] [address] Care Team Providers Care Breaker Up Name Role Phone Constance Michael MD Unavailable [phone] Constance Michael MD Primary Care Provide r [...] documented as of this encounter Care Teams Breaker Up Relationship Specialty Start Date End Date Constance Michael MD [address] [place] [address] PCP - General Internal Medicine 03/26/24 Constance Michael MD [address] [place] [address] Family Medicine 07/09/22 documented as of this encounter
--- OUTSIDE RECORDS SUMMARY | 2025-08-02 14:34 | XMS_ITS | Clinical Summary ---
Author Organization [employer] Address [address] [facility] 7t [place] [address] Care Team Providers Care Filling Hauler Name Role Phone Constance Michael MD Unavailable [phone] Constance Michael MD Primary Care Provide r [...] Encounters Date Type Department Care Team Description 08/02/2025 Results Follow-Up [facility] [address] [place] [address] Nitesh Rader MD Hepatitis C Antibody with Reflex to HCV, RNA, Quantitative, Real-Time PCR, HIV-1/2 Antigen and Antibodies, Fourth Generation, with Reflexes, Syphilis Screen 08/01/2025 9:00 AM EST Office Visit [facility] [address] [address] Nitesh Rader MD Penile rash (Primary Dx) 08/01/2025 Orders Only [facility] [address] [place] [address] Teresa Lopez MD 08/01/2025 Travel 07/11/2025 10:40 AM EDT Office Visit [facility] [address] [address] Nitesh Rader MD Cellulitis of groin (Primary Dx) 07/11/2025 Travel 07/02/2025 2:30 PM EDT Office Visit [facility] [address] [place] [address] Luca, Lisa, OD Viral conjunctivitis (Primary Dx) 07/02/2025 Travel 06/03/2025 11:20 AM EDT [facility] [address] [address] Dulce Enamorado MD Abscess (Primary Dx) 06/03/2025 Travel 05/31/2025 Travel from Last 3 Months Immunizations Immunization [...] 2025 12/01/2018 Depression Screening 07/04/2025 07/04/2024, 07/04/20 SDOH Screening 07/04/2025 07/04/2024 Dental X-Ray: Full [...] 1-dose 75+ series) 02/22/2036 HIV Screening Completed 08/01/2025, 02/11, 03/04/2025, Additional history exists Hepatitis C Screening Completed 08/01/2025 , 03/04/2025, 03/04/2025, Additional history exists HIB Vaccines Aged Out No longer eligi [...] Procedure Name Priority Date/Time Associated Diagnosis Comments PSA, FREE AND TOTAL Routine 08/01/2025 1 2:21 PM EST SYPHILIS SCREEN Routine 08/01/2025 9:21 AM EST Penile rash HIV 1/2 ANTIGEN/ANTIBODY, FOURTH GENERATION W/RFL Routine 08/01/2025 9:21 AM EST Penile rash HEPATITIS C AB W/REFL TO HCV RNA, QN, PCR Routine 08/01/2025 9:21 AM EST Penile rash PSA, TOTAL WITH REFLEX TO PSA, FREE Routine 08/01/2025 9:21 AM EST Elevated PSA AMB REFERRAL TO UROLOGY Urgent 07/17/2025 Elevated PSA, less than 10 ng/ml AMB REFERRAL TO DERMATOLOGY Routine 05/17/2025 Skin rash PROPHYLAXIS - ADULT Routine 04/03/2025 3 :00 PM EDT BITEWINGS - 4 RADIOGRAPHIC IMAGES Routine 04/03/2025 3:00 PM EDT PERIODIC ORAL EVALUATION - ESTABLISHED PATIENT Routine 04/03/2025 3:00 PM EDT INTRAORAL - COMPLETE SERIES OF RADIOGRAPHIC IMAGES Routine 09/29/2022 10:00 AM EST from Last 3 Months or Most Recently Relevant to Health Maintenance Results * (ABNORMAL) PSA, Free and Total (08/01/2025 12:21 PM EST) PSA, Total 8.6(A) < OR = 4.0 ng/mL [facility] PSA % Free 15(A) >25 % (calc) [facility] Comment: PSA(ng/mL) Free PSA(%) Estimated(x) Probability of Cancer(as%)0-2.5 (*) Approx. 12.6-4.0(1) 0-27(2) 24(3)4.1-10(4) 0-10 56 11-15 28 16-20 20 21-25 16 >or =26 8>10(+) N/A >50References:(1)Jack et al.:Urology 60: 469-474 (2001) (2)Jack et al.:J.Urol 168: 922-925 (2001) Free PSA(%) Sensitivity(%) Specificity(%) < or = 25 85 19 < or = 30 93 9 (3)Catalona et al.:ELIJAH 277: 0115-8443 (1996) (4)Catalona et al.:ELIJAH 279: 7366-6027 (1997)(x)These estimates vary with age, ethnicity, family history and BAUTISTA results.(*)The diagnostic usefulness of % Free PSA has not been established in patients with total PSA below 2.6 ng/mL(+)In men with PSA above 10 ng/mL, prostate cancer risk is determined by total PSA alone.The Total PSA value from this assay system isstandardized against the equimolar PSA standard.The test result will be approximately 20% higherwhen compared to the WHO-standardized Total PSA(Siemens assay). Comparison of serial PSA resultsshould be interpreted with this fact in mind.PSA was performed using the Morgan CoulterImmunoassay method. Values obtained from differentassay methods cannot be used interchangeably. PSAlevels, regardless of value, should not be interpretedas absolute evidence of the presence or absence ofdisease.THIS TEST WAS PERFORMED AT:[employer] [place] [phone] GRANADOS MD PSA, Free 1.3 ng/mL [facility] 08/01/2025 12:2 1 PM EST 08/01/2025 12:21 PM EST us Teresa Lopez MD LAB BLOOD ORDERABLES Fin al Result Performing Organization Address [facility] Co de Phone Number [facility] [address] [place] [phone] * Syphilis Screen (08/01/2025 9:21 AM EST) Syphilis Screen Nonreactive Nonreactive [facility] Blood 08/01/2025 9:21 AM EST 08/01/2025 11:10 AM EST Nitesh Rader MD LAB BLOOD ORDERABLES Final Resul t Performing Organization Address [facility] de Phone Number [facility] [address] [place] [phone] * (ABNORMAL) PSA, Total With Reflex to PSA, Free (08/01/2025 9:21 AM EST) PSA,Total (Free>4and<10) 9.58(H) 0.00 - 4.00 ng/mL [facility] Comment:PSA methodology: Abb marilu Mariano i ChemiluminescentMicroparticle Immunoassay (CMIA) 08/01/2025 9:21 AM EST 08/01/2025 11:10 AM EST Teresa Lopez MD LAB BLOOD ORDERABLES Fin al Result Performing Organization Address [facility] de Phone Number [facility] [address] [place] [phone] * Hepatitis C Antibody with Reflex to HCV, RNA, Quantitative, Real-Time PCR (08/01/2025 9:21 AM EST) Hepatitis C Antibody Nonreactive Nonreactive [facility] Comment:Antibodies to HCV no t detected; does not exclude early acuteHCV infection. Blood Venous blood specimen / Unknown 08/01/2025 9:21 AM EST 08/01/2025 11:10 AM EST Nitesh Rader MD LAB BLOOD ORDERABLES Final Resul t Performing Organization Address [facility] Co de Phone Number [facility] [address] [place] [phone] * HIV-1/2 Antigen and Antibodies, Fourth Generation, with Reflexes (08/01/2025 9:21 AM EST) HIV AB/AG Nonreactive Nonreactive [facility] Comment:HIV-1 p24 Ag and/or HIV-1/HIV-2 Ab not detected.A test result that is nonreactive does not exclude thepossibility of exposure to or infection with HIV-1 and/orHIV-2. Nonreactive results in this assay for individualswith prior exposure to HIV-1 and/or HIV-2 may be due toantigen and antibody levels that are below the limit ofdetection of this assay.The CaseRev HIV Ag/Ab Combo assay result andsupplemental assay results should be interpreted inconjunction with the patient's clinical presentation,history and other laboratory results. If the results areinconsistent with clinical evidence, additional testing issuggested to confirm the result. Blood Venous blood specimen / Unknown 08/01/2025 9:21 AM EST 08/01/2025 11:10 AM EST Nitesh Rader MD LAB BLOOD ORDERABLES Final Resul t Performing Organization Address [facility] Co de Phone Number [facility] [address] [place] [address] [phone] * Referral to Urology (07/17/2025) Jd Gunter MD OUTPATIENT REFERRAL ORDERABLES F inal Result * Referral to Dermatology (05/17/2025) Teresa Lopez MD OUTPATIENT REFERRAL KELLEN MONTE Final Result from Last 3 Months Insurance [place] [facility] [facility] MEDICAID LIMITED ADULT DENTAL - HSN FULL (MEDICAID) Care Teams Filling Hauler Relationship Specialty Start Date End Date Constance Michael MD [address] [place] [address] PCP - General Internal Medicine 03/26/24 Constance Michael MD [address] [place] [address] Family Medicine 07/09/22
--- OUTSIDE RECORDS SUMMARY | 2025-08-02 14:34 | XMS_ITS | Encounter Summary ---
Author Organization [employer] [facility] Address [address] [facility] 7t [place] [address] Care Team Providers Care Car Salesman Name Role Phone Kyara Bowling DMD Primary Care Provide r Constance Michael MD Unavailable [phone] Constance Michael MD Primary Care Provide r Encounter Details Date Type Department Care Team (Late st Contact Info) Description 10/15/[address] [facility] [address] [place], [place] [phone] Jay Kamara DDS [address] [place], [place] [phone] Social History Tobacco Use Types Packs/Day Years [...] on filedocumented in this encounter Care Teams Car Salesman Relationship Specialty Start Date End Date Kyara Bowling DMD [address] [place] [address] PCP - General Dentist 07/09/22 03/25/24 Constance Michael MD [address] [place] [address] PCP - General Internal Medicine 03/26/24 Constance Michael MD [address] [place] [address] Family Medicine 07/09/22 documented as of this encounter
--- OUTSIDE RECORDS SUMMARY | 2025-08-02 14:34 | XMS_ITS | Encounter Summary ---
Author Organization [employer] [facility] Address [address] [facility] 7t [place] [address] Care Team Providers Care Ventilator Specialist Name Role Phone Kyara Bowling DMD Primary Care Provide r Constance Michael MD Unavailable [phone] Constance Michael MD Primary Care Provide r Encounter Details Date Type Department Care Team ([facility] st Contact Info) Description 11/11/2022 Abstract [facility] ADULT [facility] [address] [place], [place] [phone] Jay Kamara DDS [address] [place], [place] [phone] Social History Tobacco Use Types Packs/Day Years [...] on filedocumented in this encounter Care Teams Ventilator Specialist Relationship Specialty Start Date End Date Kyara Bowling DMD [address] [place] [address] PCP - General Dentist 07/09/22 03/25/24 Constance Michael MD [address] [place] [address] PCP - General Internal Medicine 03/26/24 Constance Michael MD [address] [place] [address] Family Medicine 07/09/22 documented as of this encounter
--- OUTSIDE RECORDS SUMMARY | 2025-08-02 14:34 | XMS_ITS | Encounter Summary ---
Author Organization [facility] Address [address] [facility] 7t [place] [address] Care Team Providers Care Terrazzo Laborer Name Role Phone Kyara Bowling DMD Primary Care Provide r Constance Michael MD Unavailable [phone] Constance Michael MD Primary Care Provide r Encounter Details Date Type Department Care Team ([facility] st Contact Info) Description 11/12/2022 Abstract [facility] ADULT [facility] [address] [place], [place] [phone] Jay Kamara DDS [address] [place], [place] [phone] Social History Tobacco Use Types Packs/Day Years [...] on filedocumented in this encounter Care Teams Terrazzo Laborer Relationship Specialty Start Date End Date Kyara Bowling DMD [address] [place] [address] PCP - General Dentist 07/09/22 03/25/24 Constance Michael MD [address] [place] [address] PCP - General Internal Medicine 03/26/24 Constance Michael MD [address] [place] [address] Family Medicine 07/09/22 documented as of this encounter
--- OUTSIDE RECORDS SUMMARY | 2025-08-02 14:35 | XMS_ITS | Encounter Summary ---
Author Organization [employer] [facility] Address [address] [facility] 7t [place] [address] Care Team Providers Care Homicide Squad Captain Name Role Phone Kyara Bowling DMD Primary Care Provide r Constance Michael MD Unavailable [phone] Constance Michael MD Primary Care Provide r Encounter Details Date Type Department Care Team (Late st Contact Info) Description 12/31/2022 Abstract [facility] [address] [place], [place] [phone] Danielle, Nicolle [address] [place] [address] Social History Tobacco Use Types Packs/Day Years [...] on filedocumented in this encounter Care Teams Homicide Squad Captain Relationship Specialty Start Date End Date Kyara Bowling DMD [address] [place] [address] PCP - General Dentist 07/09/22 03/25/24 Constance Michael MD [address] [place] [address] PCP - General Internal Medicine 03/26/24 Constance Michael MD [address] [place] [address] Family Medicine 07/09/22 documented as of this encounter
--- OUTSIDE RECORDS SUMMARY | 2025-08-02 14:35 | XMS_ITS | Encounter Summary ---
Author Organization [employer] Address [address] [facility] 7t [place] [address] Care Team Providers Care Cash Application Representative Name Role Phone Kyara Bowling DMD Primary Care Provide r Constance Michael MD Unavailable [phone] Constance Michael MD Primary Care Provide r Encounter Details Date Type Department Care Team (Late st Contact Info) Description 01/14/2023 Abstract [facility] ADULT D[facility]AL [address] [place], [place] [phone] Peyton Arango, DDS [address] [place], [place] [phone] Social History Tobacco Use Types Packs/Day Years [...] on filedocumented in this encounter Care Teams Cash Application Representative Relationship Specialty Start Date End Date Kyara Bowling DMD [address] [place] [address] PCP - General Dentist 07/09/22 03/25/24 Constance Michael MD [address] [place] [address] PCP - General Internal Medicine 03/26/24 Constance Michael MD [address] [place] [address] Family Medicine 07/09/22 documented as of this encounter
--- OUTSIDE RECORDS SUMMARY | 2025-08-02 14:35 | XMS_ITS | Encounter Summary ---
Author Organization [facility] Address [address] [place] [address] Care Team Providers Care Delinquency Prevention Officer Name Role Phone Constance Michael MD Primary Care Provider Reason for Referral * Consultation (Routine) - Authorized Specialty Diagnoses / Procedures Referred By Noa stokes Referred To Contact Dermatology Diagnoses Skin rash Teresa Lopez [address] [place] [address] Phone: tel: fax: Brittney Luna MD [address] [place] [phone] Phone: tel: fax: Referral ID Status Reason Start Date Expiration Date Visits Requested Visits Authorized [id number] Authorized Specialty Services Required 03/21/2025 04/21/2026 6 6 Encounter Details Date Type Department Care Team (Latest Contact Info) Description 03/21/2025 Transcribe Orders [facility] [address] [place] [address] Teresa Lopez [address] [place] [address] Skin rash (Primary Dx) Social History Tobacco [...] 09/02/2025 6:45 PM EST Appointment [facility] [address] [address] 10/17/2025 11:00 AM EST Office Visit [facility] [address] [place] [address] Sign Erector: Grupo Ann MD [address] [place] [address] Scheduled Referrals Name Type Priority Associated Diagnoses Order Schedule Ambulatory referral to Dermatology Outpatient Referral Routine Skin rash Expected: 03/21/2025, Expires: 04/21/2026 documented as of this encounter Visit Diagnoses Diagnosis Skin rash- Primary Rash and other nonspecific skin eruption documented in this encounter Care Teams Delinquency Prevention Officer Relationship Specialty Start Date End Date Constance Michael MD [address] [place] [address] PCP - General Internal Medicine 08/13/24 documented as of this encounter
--- OUTSIDE RECORDS SUMMARY | 2025-08-02 14:35 | XMS_ITS | Encounter Summary ---
Author Organization [employer] Address [address] [facility] 7t [place] [address] Care Team Providers Care Vfx Artist Name Role Phone Constance Michael MD Unavailable [phone] Constance Michael MD Primary Care Provide r Encounter Details Date Type Department Care Team ([facility] st Contact Info) Description 08/02/2025 Results Follow-Up [facility] [address] [place] [address] Nitesh Rader MD [address] [place] [address] Hepatitis C Antibody with Reflex to HCV, RNA, Quantitative, Real-Time PCR, HIV-1/2 Antigen and Antibodies, Fourth Generation, with Reflexes, Syphilis Screen Social History Tobacco Use Types Packs/Day Years [...] your housing situation today? I have rajiv brdaley 07/04/[address] you li [...] documented as of this encounter Care Teams Vfx Artist Relationship Specialty Start Date End Date Constance Michael MD [address] [place] [address] PCP - General Internal Medicine 03/26/24 Constance Michael MD [address] [place] [address] Family Medicine 07/09/22 documented as of this encounter
--- OUTSIDE RECORDS SUMMARY | 2025-08-02 14:35 | XMS_ITS | Encounter Summary ---
Author Organization [employer] Address [address] [facility] 7t [place] [address] Care Team Providers Care Vat Skimmer Name Role Phone Kyara Bowling DMD Primary Care Provide r Constance Michael MD Unavailable [phone] Constance Michael MD Primary Care Provide r Reason for Visit * Reason Onset Date Comments Nurse Triage 05/26/2023 Encounter Details Date Type Department Care Team (Late st Contact Info) Description 05/26/2023 Telephone [facility] [address] [place] [address] Kyara Bowling DMD [address] [place] [address] Nurse Triage Social History Tobacco Use Types [...] 05/26/2023 5:04 PM EDT Triage call with [employer] [place] [id number] Pt reports localized rash for last 3 days, top of lip to under nose. Pt reports itchy, red , painful with little blisters draining water . Pt is advised to come to [facility] in the morning for provider tosee. Pt agrees with disposition , will come to [facility] in AM hours given opens at 830am [...] The caller accepted this outcome Patient speaks english documented in this encounter Plan of Treatment Not on file documented as of this encounter Visit Diagnoses Not on filedocumented in this encounter Care Teams Vat Skimmer Relationship Specialty Start Date End Date Kyara Bowling DMD [address] [place] [address] PCP - General Dentist 07/09/22 03/25/24 Constance Michael MD [address] [place] [address] PCP - General Internal Medicine 03/26/24 Constance Michael MD [address] [place] [address] Family Medicine 07/09/22 documented as of this encounter
--- OUTSIDE RECORDS SUMMARY | 2025-08-02 14:35 | XMS_ITS | Encounter Summary ---
Author Organization [employer] [facility] Address 75 [facility] 7t [place] [address] Care Team Providers Care Paid Intern Name Role Phone Constance Michael MD Primary Care Provide r Kyara Bowling DMD Primary Care Provide r Constance Michael MD Unavailable [phone] Constance Michael MD Primary Care Provide r Encounter Details Date Type Department Care Team (Latest Contact Info) Description 05/23/2019 Abstract [facility] CONVERSIONS Dental, Provider, DDS Social History [...] on filedocumented in this encounter Care Teams Paid Intern Relationship Specialty Start Date End Date Constance Michael MD [address] [place] [address] PCP - General Family Medicine 12/01/18 07/08/22 Kyara Bowling DMD [address] [place] [address] PCP - General Dentist 07/09/22 03/25/24 Constance Michael MD [address] [place] [address] PCP - General Internal Medicine 03/26/24 Constance Michael MD [address] [place] [address] Family Medicine 07/09/22 documented as of this encounter
--- OUTSIDE RECORDS SUMMARY | 2025-08-02 14:35 | XMS_ITS | Encounter Summary ---
Author Organization [employer] Address 75 [facility] 7t [place] [address] Care Team Providers Care Harbour Master Name Role Phone Constance Michael MD Unavailable [phone] Constance Michael MD Primary Care Provide r Encounter Details Date Type Department Care Team ([facility] st Contact Info) Description 08/01/2025 Orders Only [facility] [address] [place] [address] Teresa Lopez MD [address] [place] [address] Social History Tobacco Use Types Packs/Day Years [...] on file documented as of this encounter Procedures Procedure Name Priority Date/Time Associated Diagnosis Comments PSA, FREE AND TOTAL Routine 08/01/2025 1 2:21 PM EST documented in this encounter Results * (ABNORMAL) PSA, Free and Total (08/01/2025 12:21 PM EST) PSA, Total 8.6(A) < OR = 4.0 ng/mL [facility] PSA % Free 15(A) >25 % (calc) [facility] Comment: PSA(ng/mL) Free PSA(%) Estimated(x) Probability of Cancer(as%)0-2.5 (*) Approx. 12.6-4.0(1) 0-27(2) 24(3)4.1-10(4) 0-10 56 11-15 28 16-20 20 21-25 16 >or =26 8>10(+) N/A >50References:(1)Jack et al.:Urology 60: 469-474 (2002) (2)Jack et al.:J.Urol 168: 922-925 (2002) Free PSA(%) Sensitivity(%) Specificity(%) < or = 25 85 19 < or = 30 93 9 (3)Jack et al.:ELIJAH 277: 3640-7938 (1996) (4)Catalona et al.:ELIJAH 279: 0345-1769 (1997)(x)These estimates vary with age, ethnicity, family [...] presence or absence ofdisease.THIS TEST WAS PERFORMED AT:[employer] [place] [id number] GRANADOS MD PSA, Free 1.3 ng/mL [facility] 08/01/2025 12:2 1 PM EST 08/01/2025 12:21 PM EST us Teresa Lopez MD LAB BLOOD ORDERABLES Fin al Result [facility] [address] [place] [phone] documented in this encounter Visit Diagnoses Not on filedocumented in this encounter Additional Health Concerns Assessment Noted Time PHQ-9 Depression Total Score: 0 07/04/20 24 11:58 AM EDT documented as of this encounter Care Teams Harbour Master Relationship Specialty Start Date End Date Constance Michael MD [address] [place] [address] PCP - General Internal Medicine 03/26/24 Constance Michael MD [address] [place] [address] Family Medicine 07/09/22 documented as of this encounter
== END 2025-08-02 14:15 | disposition home or self-care (01) ==
LOC: HO.LNP 14:14
PROVIDERS: Visit Provider Nurse Practitioner Primary Care
DX: K21.9 Gastro-esophageal reflux disease without esophagitis (principal)
CPT/HCPCS: 87338

== ENCOUNTER 2025-08-21 11:45 | Outpatient (REF) | payer MEDICAID, OTHER, SELFPAY | END 2025-08-21 11:46 | LOC: HO.HHCL 11:45 | PROVIDERS: Nurse Practitioner Family; PCP Internal Medicine; Visit Provider Emergency Medicine | DX: Z01.84 Encounter for antibody response examination (principal); R21 Rash and other nonspecific skin eruption; N50.89 Other specified disorders of the male genital organs | CPT/HCPCS: 36415; 82947; 83036; 86695; 86696 ==

== ENCOUNTER 2025-08-26 10:19 | Outpatient (REF) | payer MEDICAID, OTHER, SELFPAY ==
[2025-08-26 12:47] LABS: HBsAGNum1 0.40 S/CO (0.00-0.99); HIV Num 1 0.07 S/CO (0.00-0.99); Hepatitis B Surface Antigen Negative (Negative); ~HepC Num1 0.10 S/CO (0.00-0.79); ~Hepatitis C Antibody Nonreactive (Nonreactive)
[2025-08-26 15:53] LABS: CT PCR Urine NOT DETECTED (Not Detect.); NG PCR Urine NOT DETECTED (Not Detect.)
== END 2025-08-26 10:20 | disposition home or self-care (01) ==
LOC: HO.HHCL 10:19
PROVIDERS: PCP Internal Medicine; Visit Provider Internal Medicine Geriatric Medicine
DX: N48.1 Balanitis (principal); Z20.2 Contact with and (suspected) exposure to infections with a predominantly sexual mode of transmission; Z11.4 Encounter for screening for human immunodeficiency virus [HIV]; Z11.59 Encounter for screening for other viral diseases
CPT/HCPCS: 36415; 86592; 86803; 87340; 87389; 87491; 87591